=== PATIENT | male | born 1955 ===

== ENCOUNTER 2024-05-20 05:15 | Inpatient (IN) | payer OTHER ==
[2024-05-14 08:46] VITALS: BP 110/77
[2024-05-14 09:04] LABS: PH,URINE 5.5 (5.0-8.0); URINE APPEARANCE Clear; URINE BILIRRUBIN Negative (NEGATIVE); URINE BLOOD Negative; URINE COLOR Yellow; URINE GLUCOSE Negative (NEGATIVE); URINE KETONE Negative (NEGATIVE); URINE LEUKOCYTE Negative; URINE NITRATE Negative; URINE PROTEIN Negative (NEGATIVE); URINE UROBILINOGEN 0.2 E.U./dl
[2024-05-14 09:09] LABS: URINE WBC 2.9 uL (0.0-23.2)
[2024-05-14 09:34] LABS: INR 1.13; PARTIAL THROMBOPLASTIN TIME 26.5 SECONDS (22.0-34.0); PROTHROMBIN TIME 12.2 SECONDS (9.0-11.5)
[2024-05-14 09:55] LABS: HEMATOCRIT 41.9 % (39.0-48.0); HEMOGLOBIN 14.2 g/dL (13-16.00); MEAN CELL VOLUME 88.9 fL (80.0-100.00); MEAN CORPUSCULAR HEMOGLOBIN 30.1 pg (27.00-32.0); MEAN CORPUSCULAR HGB CONC 33.9 g/dl (32.0-36.0); PLATELET COUNT 164 K/uL (150-450); RED BLOOD COUNT 4.71 M/uL (4.00-6.00); RED CELL DISTRIBUTION WIDTH 14.8 % (11.5-14.5)
[2024-05-14 10:00] LABS: URINE CAST 0.14 uL (0.0-1.40); URINE EPITHELIAL CELLS 1.2 uL (0.0-38.8); URINE RBC 1.4 uL (0.0-20.8)
[2024-05-14 10:07] LABS: ALBUMIN 3.9 gm/dL (3.4-5.0); BILIRUBIN TOTAL 0.74 mg/dL (0.3-1.2); CALCIUM 9.8 mg/dL (8.5-10.1); CREATININE SERUM 1.12 mg/dL (0.70-1.30); GFR 65.39; GLOBULINA 3.7 G/DL (2.4-3.5); POTASSIUM 4.75 mEq/L (3.5-5.1); TOTAL PROTEIN 7.6 gm/dL (6.4-8.2)
[~2024-05-20] VITALS: Ht 177.8 cm; Wt 95.3 kg
[~2024-05-20 05:15] MED LIST: COZAAR25 MG PO; DILTIAZEM ER120 M2 PO; GLUMETZA500 MG PO; LIPITOR20 MG
[2024-05-20] MEDS ORDERED: CEFAZOLIN SODIUM 1,000 MG VIAL ONE ×2 (11:53→16:33)
[2024-05-20] MEDS ORDERED: SUGAMMADEX SODIUM 200 MG/2 ML VIAL IV ONE ×2 (14:12→14:30)
[2024-05-20] MEDS ORDERED: ACETAMINOPHEN 500 MG GEL..CAP PO SCH (14:20)
[2024-05-20] MEDS ORDERED: ENOXAPARIN SODIUM 40 MG/0.4 ML SYRINGE SUBCUTANEO SCH (14:20)
[2024-05-20] MEDS ORDERED: MORPHINE SULFATE 4 MG/ML CARTRIDGE IV PRN (14:30)
[2024-05-20] MEDS ORDERED: MORPHINE SULFATE 4 MG/ML VIAL IV ONE ×2 (14:55→15:25)
[2024-05-20] MEDS ORDERED: ENOXAPARIN SODIUM 40 MG/0.4 ML SYRINGE SUBCUTANEO ONE (16:30)
[2024-05-20] MEDS ORDERED: CEFAZOLIN SODIUM 1,000 MG VIAL IV SCH (18:00)
[2024-05-21 02:11] VITALS: BP 126/76; O2SAT 96
[2024-05-21 08:00] VITALS: BP 142/84; O2SAT 98
== END 2024-05-21 11:55 | disposition home or self-care (01) | DRG 355 ==
LOC: CIR.AMB 05:15 → O/R 14:40 → SURH 14:57
PROVIDERS: ADMIT Surgery; ATTEND Surgery
PROC: 8E0W4CZ Robotic Assisted Procedure of Trunk Region, Percutaneous Endoscopic Approach (ICD-10-PCS; 2024-05-20)
PROC: 0WUF4JZ Supplement Abdominal Wall with Synthetic Substitute, Percutaneous Endoscopic Approach (ICD-10-PCS; principal; 2024-05-20 07:00)
DX: K43.0 Incisional hernia with obstruction, without gangrene (principal)
CPT/HCPCS: 49618; S2900